=== PATIENT | female | born 1945 | race Caucasian/White ===

== ENCOUNTER → 2017-03-12 | Outpatient (CLI) | payer MEDICARE ==
[~2017-03-12] MED LIST: ASPIR 8181 M1 PO; ASPIR-LOW81 MG PO; ATARAX,VISTARIL25 MG PO; ATORVASTATIN CA10 MG PO; B COMPLETE1 EACH PO; B-100 COMPLEX1 EACH PO; B-COMPLEX PO; B-COMPLEX-VITA1 EACH PO; BAL B-1001 EACH PO; BENADRYL25 MG PO; CELEBREX200 MG PO; CEPHALEXIN500 MG PO; CLOPIDOGREL75 MG PO; D3 PO; DAILY VALUE1 EACH PO; DAILY VITAMIN1 EAC8 PO; LIPITOR20 MG PO; MAGNESIUM250 MG PO; NASACORT AQ16.5 GM BOTH NARES; OMEPRAZOLE40 M1 PO; PANTOPRAZOLE SO40 MG PO; PERMETHRIN60 GM TP; PLAVIX75 MG PO; PREDNISONE20 MG PO; Prilosec PO; SIMVASTATIN10 MG PO; SOOTHE HYDRATIO15 ML BOTH EYES; SOOTHE LUBRICA1 EACH BOTH EYES; TRAMADOL; TRIAMCINOLONE16.5 GM BOTH NARES; TYLENOL EXTRA500 MG PO; TYLENOL REGULA325 MG PO; VITAMIN D1000 INTUN PO; VITAMIN D1000 UNIT PO; VITAMIN D2000 INTUN PO; VITAMIN D31000 UNIT PO; Vicodin,Lortab 5/500 PO
== END | disposition home or self-care (01) ==
LOC: CDC 12:35
DX: R01.1 Cardiac murmur, unspecified (principal); N95.0 Postmenopausal bleeding; R93.8 Abnormal findings on diagnostic imaging of other specified body structures; R94.31 Abnormal electrocardiogram [ECG] [EKG]
CPT/HCPCS: 93000

== ENCOUNTER 2017-03-19 07:15 | Day surgery (SDC) | payer OTHER, MEDICARE ==
[~2017-03-19] VITALS: Ht 152.4 cm; Wt 100.0 kg
[~2017-03-19 07:15] MED LIST changes: +ASPIRIN81 M2 PO; +MULTIPLE VITAM1 EAC1 PO; +TRAMADOL HCL50 MG PO
[2017-03-19 08:00] VITALS: BP 176/79
[2017-03-19] MEDS ORDERED: HYDROCODON-ACE1 EAC7 PO (10:17)
[2017-03-19] MEDS ORDERED: IBUPROFEN800 MG PO (10:17)
[2017-03-19 11:20] VITALS: BP 133/49
[2017-03-19 12:43] VITALS: BP 136/58
[2017-03-22 11:05] LABS: HIGH-RISK HPV DNA PROBE NEGATIVE; HPV GENOTYPE 16 NEGATIVE; HPV GENOTYPE 18 NEGATIVE
== END 2017-03-19 12:55 | disposition home or self-care (01) ==
LOC: SDC
PROVIDERS: Obstetrics & Gynecology
PROC: 0U5B8ZZ Destruction of Endometrium, Via Natural or Artificial Opening Endoscopic (ICD-10-PCS; principal; 2017-03-19)
DX: N85.02 Endometrial intraepithelial neoplasia [EIN] (principal); N95.0 Postmenopausal bleeding; K21.9 Gastro-esophageal reflux disease without esophagitis; E78.5 Hyperlipidemia, unspecified; I44.7 Left bundle-branch block, unspecified; I48.0 Paroxysmal atrial fibrillation; E66.01 Morbid (severe) obesity due to excess calories; Z86.73 Personal history of transient ischemic attack (TIA), and cerebral infarction without residual deficits; Z88.0 Allergy status to penicillin; Z82.5 Family history of asthma and other chronic lower respiratory diseases; Z82.49 Family history of ischemic heart disease and other diseases of the circulatory system; Z80.1 Family history of malignant neoplasm of trachea, bronchus and lung; Z80.8 Family history of malignant neoplasm of other organs or systems; Z79.82 Long term (current) use of aspirin; Z68.41 Body mass index [BMI] 40.0-44.9, adult
CPT/HCPCS: 87624; 88305; G0145; J0330; J1100; J1885; J2405; J3010

== ENCOUNTER 2017-11-05 12:49 | Observation (INO) | payer OTHER, MEDICARE ==
[~2017-11-05] VITALS: Ht 152.4 cm; Wt 98.1 kg
[~2017-11-05 12:49] MED LIST changes: +HYDROCODON-ACE1 EAC7 PO; +IBUPROFEN800 MG PO
[2017-11-05 14:25] LABS: HEMATOCRIT 41.9 % (36.0-46.0); HEMOGLOBIN 13.9 G/DL (11.9-15.5); MCH 28.7 PG (29.0-34.0); MCHC 33.2 G/DL (30.0-36.0); MCV 86.6 FL (83-99); PLATELET COUNT 220 K/uL (156-360); RBC DIS.WIDTH-CV 14.1 % (11.8-14.6); RBC DIS.WIDTH-SD 44.8 % (39-53); RED BLOOD COUNT 4.84 M/uL (3.80-5.20); WHITE BLOOD COUNT 7.4 K/uL (4.1-10.2)
[2017-11-05 14:37] LABS: ALBUMIN 4.1 g/dL (3.2-4.8)
[2017-11-05 14:38] LABS: CHLORIDE 111 mEq/L (99-109); SODIUM 144 mEq/L (136-147)
[2017-11-05 14:40] LABS: GLUCOSE 85 mg/dL (70-99); TOTAL PROTEIN 6.8 g/dL (6.4-8.3)
[2017-11-05 14:42] LABS: TOTAL BILIRUBIN 0.5 mg/dL (0.0-1.0)
[2017-11-05 14:43] LABS: ALKALINE PHOSPHATASE 75 IU/L (3-129)
[2017-11-05 14:44] LABS: CREATININE 0.7 mg/dL (0.6-1.3); GFR ESTIMATE (CALCULATED) > 59 mL/min/
[2017-11-05 14:45] LABS: AST (GOT) 18 IU/L (2-34); UREA NITROGEN (BUN) 19 mg/dL (9-23)
[2017-11-05 14:47] LABS: ALT (GPT) 19 IU/L (3-49); LIPASE 43 U/L (1.0-51.0); TROP-I INTERPRETATION NEGATIVE; TROPONIN-I < 0.01 ng/mL (0.0-0.30)
[2017-11-05] MEDS ORDERED: VITAMIN C125 MG PO (16:20)
[2017-11-05 19:47] VITALS: BP 146/69
[2017-11-06 00:28] VITALS: BP 120/56
[2017-11-06 01:32] LABS: TROP-I INTERPRETATION NEGATIVE; TROPONIN-I < 0.01 ng/mL (0.0-0.30)
[2017-11-06 05:15] VITALS: BP 156/65
[2017-11-06 05:49] LABS: TROP-I INTERPRETATION NEGATIVE; TROPONIN-I < 0.01 ng/mL (0.0-0.30)
[2017-11-06 05:53] LABS: CHLORIDE 111 MEQ/L (99-109); CREATININE 0.7 MG/DL (0.6-1.3); GFR ESTIMATE (CALCULATED) > 59 mL/min/; GLUCOSE 99 mg/dL (70-99); POTASSIUM 4.1 MEQ/L (3.7-5.4); SODIUM 143 MEQ/L (136-147); UREA NITROGEN (BUN) 19 mg/dL (9-23)
[2017-11-06 07:40] VITALS: BP 132/64
[2017-11-06] MEDS ORDERED: NITROSTAT0.4 MG SL (10:55)
== END 2017-11-06 11:40 | disposition home or self-care (01) ==
LOC: EME 12:49 → EDOF 15:49 → ENRESERV 15:51 → 5WEST 19:34 → ENPENDDIS 11-06 → 5WEST 11-06 11:40
PROVIDERS: Emergency Medicine; Family Medicine
DX: R07.89 Other chest pain (principal); R94.31 Abnormal electrocardiogram [ECG] [EKG]; I44.7 Left bundle-branch block, unspecified; R10.30 Lower abdominal pain, unspecified; R14.2 Eructation; Z86.73 Personal history of transient ischemic attack (TIA), and cerebral infarction without residual deficits; K21.9 Gastro-esophageal reflux disease without esophagitis; E78.5 Hyperlipidemia, unspecified; E66.01 Morbid (severe) obesity due to excess calories; Z68.41 Body mass index [BMI] 40.0-44.9, adult; Z98.84 Bariatric surgery status; Z87.09 Personal history of other diseases of the respiratory system; Z90.49 Acquired absence of other specified parts of digestive tract; Z88.0 Allergy status to penicillin
CPT/HCPCS: 71046; 80048; 80053; 83690; 84484; 85027; 93005; G0378; J1650

== ENCOUNTER 2017-12-09 08:53 | Day surgery (SDC) | payer OTHER, MEDICARE ==
[~2017-12-09] VITALS: Ht 152.4 cm; Wt 97.0 kg
[~2017-12-09 08:53] MED LIST changes: +ELIQUIS5 MG PO; +MAGNESIUM400 M1 PO; +METOPROLOL TART25 MG PO; +NITROSTAT0.4 MG SL; +VITAMIN C125 MG PO
[2017-12-09] MEDS ORDERED: ASPIRIN EC325 MG PO (10:03)
== END 2017-12-09 15:45 | disposition home or self-care (01) ==
LOC: CATH 08:53
DX: I42.9 Cardiomyopathy, unspecified (principal); I34.0 Nonrheumatic mitral (valve) insufficiency; I44.7 Left bundle-branch block, unspecified; I48.0 Paroxysmal atrial fibrillation; E78.2 Mixed hyperlipidemia; E66.8 Other obesity; Z68.41 Body mass index [BMI] 40.0-44.9, adult; Z79.82 Long term (current) use of aspirin; Z79.01 Long term (current) use of anticoagulants
CPT/HCPCS: C1769; C1887; J1200; J1644; J2250; J7040